=== PATIENT | male | born 1980 | race Two or more races ===

== ENCOUNTER 2024-06-18 21:27 | Emergency (ER) | payer OTHER ==
[~2024-06-18] VITALS: Ht 170.2 cm; Wt 63.5 kg
--- NOTE | 2024-06-18 21:40 | NUR ---
[facility]IBLAP[facility] FOR OTB. C/O BG 324 AND + KETONES IN URINE., PATIENT ADMITS TO DRINKING, PLACED TO BED AND HOOKED INTO A MONITOR
--- NOTE | 2024-06-18 21:50 | NUR ---
INSERTED IV CANNULA G20 R AC, BLOOD DRAWN SENT TO LAB
[2024-06-18] MEDS: IV NS 0.9% 1,000 ML BAG IV ONE (21:55)
[2024-06-18 22:03] LABS: BASOPHILS % (AUTO) 0.2 % (0.0-2.0); EOSINOPHILS # (AUTO) 0.1 K/uL (0.0-0.7); HEMATOCRIT 43 % (39-51); HEMOGLOBIN 14.6 g/dL (13.5-17.5); LYMPHOCYTES # (AUTO) 0.9 K/uL (0.8-4.8); LYMPHOCYTES % (AUTO) 16.2 % (20.0-44.0); MEAN CORPUSCULAR HEMOGLOBIN 34 PG (26.0-33.0); MEAN CORPUSCULAR HGB CONC 34 g/dl (31.0-36.0); MEAN CORPUSCULAR VOLUME 98 fL (80-96); MONOCYTES # (AUTO) 0.5 K/uL (0.1-1.30); MONOCYTES % (AUTO) 8.8 % (2.0-12.0); NEUTROPHILS # (AUTO) 4.1 K/uL (1.8-8.9); NEUTROPHILS % (AUTO) 73.8 % (43.0-81.0); PLATELET COUNT (AUTO) 168 K/uL (150-450); RED BLOOD CELL COUNT(AUTO) 4.37 MIL/uL (4.5-6.0); RED CELL DISTRIBUTION WIDTH 13.1 % (11.5-15.0); WHITE BLOOD COUNT (AUTO) 5.5 K/uL (4.3-11.0)
--- NOTE | 2024-06-18 22:12 | NUR ---
URINE SPECIMEN COLLECTED SENT TO LAB
[2024-06-18 22:25] LABS: ALBUMIN 3.8 g/dL (3.4-5.0); BILIRUBIN,DIRECT 0.3 mg/dL (0.0-0.2); BILIRUBIN,TOTAL 0.8 mg/dL (0.2-1.0); CALCIUM, SERUM 9.9 mg/dL (8.5-10.1); CREATININE 0.6 mg/dL (0.6-1.3); POTASSIUM 3.7 mmol/L (3.5-5.1); TOTAL PROTEIN, SERUM 8.1 g/dL (6.4-8.2)
[2024-06-18 22:40] LABS: APPEARANCE,URINE CLEAR (CLEAR); BILIRUBIN,URINE NEGATIVE (NEGATIVE); BLOOD, URINE 2+ Ery/uL (NEGATIVE); COLOR,URINE YELLOW (YELLOW); KETONES,URINE 2+ mg/dL (NEGATIVE); LEUKOCYTE ESTERASE ,URINE NEGATIVE (NEGATIVE); NITRITE, URINE NEGATIVE (NEGATIVE); PROTEIN,URINE NEGATIVE (NEGATIVE); UGLUCOSE 3+ mg/dL (NEGATIVE); UROBILINOGEN,URINE 0.2 EU/dL (0.2)
[2024-06-18 22:48] LABS: ADD URINE CULTURE NO; BACTERIA,URINE Rare /HPF (None Seen); SQUAMOUS EPITHELIAL CELL,UR Few /HPF (None Seen)
--- NOTE | 2024-06-18 23:01 | NUR ---
IV CANNULA REMOVED
--- NOTE | 2024-06-18 23:01 | NUR ---
Patient discharged, OK TO BOOK in stable condition. Written and verbal after care instructions given. Patient verbalizes understanding of instruction.
[2024-06-18 23:02] VITALS: BP 136/72; TEMP 98; O2SAT 99
== END 2024-06-18 23:04 ==
LOC: ER 21:37
DX: E11.65 Type 2 diabetes mellitus with hyperglycemia (principal)
CPT/HCPCS: 99283; 96360; 85025; 80048; 83690; 80076; 81001; 36415; 82962 ×2; 80320; J7030; G0480